=== PATIENT | male | born 1945 | race African-American/Black ===

== ENCOUNTER 2022-02-22 07:11 | Day surgery (SDC) | payer OTHER ==
[2022-02-18 11:36] LABS: SARS-CoV-2 Antigen Rapid Res Negative (Negative)
[2022-02-22] MEDS ORDERED: NA CHLORIDE 0.9% 1,000 ML ONE (07:55)
[2022-02-22 08:09] VITALS: O2SAT 98
[2022-02-22] MEDS ORDERED: GLYCOPYRROLATE 0.2 MG/ML SYR ONE (08:10)
[2022-02-22] MEDS ORDERED: LIDOCAINE 1% MPF 5 ML VIAL ONE (08:10)
[2022-02-22] MEDS ORDERED: propofoL 200 MG/20 ML VIAL IV ONE (08:10)
[2022-02-22 10:03] VITALS: BP 117/72; TEMP 98.2
--- NOTE | 2022-02-23 02:41 | OP ---
Surgeon: Giovanni Chavez MD Procedure: Colonoscopy. 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 Plan For Anesthesia: Monitored anesthesia care. Complexity: High due to patient's comorbidities. Technique: After obtaining informed consent from the patient explaining risks and complications whic h include but are not limited to bleeding, infection, perforation, and anesthesia complication, the p atient was placed in left lateral position and sedation was given. Digital rectal exam was performed . Scope advanced into the rectum and carefully guided up till the cecum. The cecum was identified b y the ileocecal valve and appendiceal orifice. The quality of prep was fair. After reaching the cec um, the scope withdrawn while carefully examining the mucosa. Findings: A 4-mm polyp was removed from the cecum with hot biopsy forceps at the splenic flexure, a 5-mm flat polyp was seen and removed with hot biopsy forceps. In the transverse colon, a tattoo was seen. Next, near the tattoo, a scar tissue with granular mucosa with polypoid features was seen. By visual inspection, there did not appear to be any adenomatous tissue. However, multiple biopsies we re taken from this area to rule out any residual tissue. 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 Complications: None. Tolerance To Anesthesia: Excellent. Postop Diagnoses: Colonic arteriovenous malformation, colon polyp, questionable residual transverse colon polyp status post biopsy. Plan: 1.Await pathology results. 2.Follow up in the clinic. If transverse colon biopsies are negative, we should repeat colonoscopy in 1 year. US/MODL Voice ID: [id number] Report ID: [id number]
== END 2022-02-22 09:50 | disposition home or self-care (01) ==
LOC: OR 07:11
PROVIDERS: ATTEND Internal Medicine Gastroenterology
PROC: 0DBL8ZX Excision of Transverse Colon, Via Natural or Artificial Opening Endoscopic, Diagnostic (ICD-10-PCS; 2022-02-22)
PROC: 0DBH8ZX Excision of Cecum, Via Natural or Artificial Opening Endoscopic, Diagnostic (ICD-10-PCS; 2022-02-22)
PROC: 0DBL8ZX Excision of Transverse Colon, Via Natural or Artificial Opening Endoscopic, Diagnostic (ICD-10-PCS; 2022-02-22)
PROC: 0DBH8ZX Excision of Cecum, Via Natural or Artificial Opening Endoscopic, Diagnostic (ICD-10-PCS; principal; 2022-02-22 08:30)
DX: D12.3 Benign neoplasm of transverse colon (principal); Q27.39 Arteriovenous malformation, other site; Z86.010 Personal history of colon polyps; Z95.0 Presence of cardiac pacemaker; K21.9 Gastro-esophageal reflux disease without esophagitis; E11.9 Type 2 diabetes mellitus without complications; I10 Essential (primary) hypertension; J44.9 Chronic obstructive pulmonary disease, unspecified
CPT/HCPCS: 36415; 82947; 88305; 87811; 45384; 45380; J2704; J7030